=== PATIENT | female | born 1970 | race Caucasian/White ===

== ENCOUNTER 2024-07-29 20:03 | Inpatient (IN) | payer BC, SELFPAY ==
[2024-07-29] VITALS (7 sets, daily range): BP systolic 117–143; BP diastolic 69–86; BMI 15.5; BMI 33.2
--- NOTE | 2024-07-29 13:30 | ED.GENMED ---
ED Provider Triage
<Cindy Kilgore BLACK TOP RAKER - Last Filed: 07/29/24 13:39>
-
Patient seen by provider in Triage?: Seen in Triage
Attestation: A medical screening examination has been initiated by a qualified medical provider. Based on the assessment performed at this time, it has been determined that an emergent medical condition may exist and the patient has been informed
that further medical evaluation and possible additional diagnostic testing may be needed.
HPI: 53 yo female here for swelling in legs, pt states she was discharged two hours ago UTI, from [facility] for Crohn's flare, rectal bleeding with clots, thrush, renal failure
She has been in contact with her colorectal Dr. Chang who was going to have her transferred here but they discharged her before that happened.
VSS
GENERAL: Alert , in no apparent distress
EYE: No visual abnormalities.
NECK: Trachea midline
ENT: No visible abnormalities.
LUNGS: No acute respiratory distress
NEUROLOGICAL: Alert and oriented
SKIN: Skin intact. No visible changes.
MUSCULOSKELETAL: Moving extremities normally
PSYCH: Normal and appropriate interaction.
This is a medical evaluation conducted in person to initiate diagnostic evaluation and provide initial therapeutics. Please see further documentation by the treating clinician.
History of Present Illness
<Cindy Kilgore, BLACK TOP RAKER - Last Filed: 07/29/24 13:39>
General
Chief Complaint: Abdominal Pain
Time Seen by Provider: 07/29/24 16:15
<Jaylan Dickson PA-C - Last Filed: 07/29/24 17:32>
General
Source: patient
Exam Limitations: none
History of Present Illness
History of Present Illness:
53-year-old female with history of Crohn's disease recently released from [facility] for Crohn's flare, thrush, UTI. She is followed by colorectal specialist here, Dr. Chang. She was told to come here by her colorectal specialist. She
notes ongoing bloody bowel movements abdominal discomfort and leg swelling. She notes fatigue. She also notes difficulty swallowing secondary to her thrush. She has been using nystatin at the hospital. She was basically discharged from [facility] with instructions to come right here.
Past History
<Cindy Kilgore BLACK TOP RAKER - Last Filed: 07/29/24 13:39>
Past History
ED Past Medical History: Other (Crohns, RA on Stellara, Uterine fibroids, Anemia, )
ED Past Surgical History: Appendectomy, Bowel resection (with colostomy reversal. J pouch), Cholecystectomy, Orthopedic (Right wrist surgery), Tonsilectomy and Other (February 17 2020 Attempted reversal of Colostomy with further bowel resection and
Ileostomy, lysis of adhesions, J-pouch formation)
Social History
Tobacco: Smoker
Alcohol: None
Personal: (But seperated)
Living: with family
Employment: Other
Family History
Family History: Other
Phy Exam
<Jaylan Dickson PA-C - Last Filed: 07/29/24 17:32>
Physical Exam
Physical Exam:
General: Well-appearing female no acute respiratory distress
HEENT: Normocephalic atraumatic
Heart: Regular rate and rhythm no murmurs
Lungs: Clear no wheeze
Abdomen is soft mildly diffusely tender. Ecchymosis noted over the abdominal skin is consistent with subcutaneous heparin injections from recent hospitalization
Extremities: Mild pitting edema bilateral lower extremities
Skin warm no rash
Course
<Cindy Kilgore, BLACK TOP RAKER - Last Filed: 07/29/24 13:39>
Orders/Labs/Results
Orders:
Orders
07/29/24 13:37
Urinalysis Reflex To Culture Urgent
07/29/24 14:05
Type+Screen Urgent
CRP [C-Reactive Protein] Urgent
Complete Blood Count/With Diff Urgent
Comprehensive Metabolic Panel Urgent
Lipase Urgent
Manual Differential Urgent
07/29/24 16:38
0.9% Sodium Chloride 1000 ml [Nss] 1,000 ml IV BOLUS
Abnormal Lab Results
07/29/24
14:05
WBC 23.5 H 10^3/uL
(4.8-10.8)
RBC 3.59 L 10^6/uL
(4.20-5.40)
Hgb 10.2 L g/dL
(12.0-16.0)
Hct 31.2 L %
(37.0-47.0)
MCHC 32.7 L g/dL
(33.0-37.0)
RDW 15.4 H %
(11.5-14.5)
Abs Neuts (Manual) 14.3 H 10^3/uL
(1.4-6.5)
Chloride 109 H mmol/L
(98-107)
BUN 39 H mg/dl
(7-17)
Creatinine 1.6 H mg/dL
(0.6-1.0)
AST 55 H U/L
(14-36)
ALT 92 H U/L
(0-35)
Total Protein 5.6 L g/dl
(6.3-8.2)
Albumin 3.2 L g/dl
(3.5-5.0)
07/29/24 14:05
07/29/24 14:05
Vital Signs
Initial and Last Documented VS:
Initial Vital Signs
Temp Pulse Resp BP Pulse Ox
98.2 F 85 18 139/86 98
07/29/24 13:29 07/29/24 13:29 07/29/24 13:29 07/29/24 13:29 07/29/24 13:29
Last Documented Vital Signs
Temp Pulse Resp BP Pulse Ox
98.2 F 92 18 120/77 95
07/29/24 13:29 07/29/24 15:16 07/29/24 15:16 07/29/24 16:47 07/29/24 16:48
Aaronlt;Jaylan Dickson PA-C - Last Filed: 07/29/24 17:32>
Orders/Labs/Results
Orders:
Orders
07/29/24 13:37
Urinalysis Reflex To Culture Urgent
07/29/24 14:05
Type+Screen Urgent
CRP [C-Reactive Protein] Urgent
Complete Blood Count/With Diff Urgent
Comprehensive Metabolic Panel Urgent
Lipase Urgent
Manual Differential Urgent
07/29/24 16:38
0.9% Sodium Chloride 1000 ml [Nss] 1,000 ml IV BOLUS
Abnormal Lab Results
07/29/24
14:05
WBC 23.5 H 10^3/uL
(4.8-10.8)
RBC 3.59 L 10^6/uL
(4.20-5.40)
Hgb 10.2 L g/dL
(12.0-16.0)
Hct 31.2 L %
(37.0-47.0)
MCHC 32.7 L g/dL
(33.0-37.0)
RDW 15.4 H %
(11.5-14.5)
Abs Neuts (Manual) 14.3 H 10^3/uL
(1.4-6.5)
Chloride 109 H mmol/L
(98-107)
BUN 39 H mg/dl
(7-17)
Creatinine 1.6 H mg/dL
(0.6-1.0)
AST 55 H U/L
(14-36)
ALT 92 H U/L
(0-35)
Total Protein 5.6 L g/dl
(6.3-8.2)
Albumin 3.2 L g/dl
(3.5-5.0)
07/29/24 14:05
07/29/24 14:05
Vital Signs
Initial and Last Documented VS:
Initial Vital Signs
Temp Pulse Resp BP Pulse Ox
98.2 F 85 18 139/86 98
07/29/24 13:29 07/29/24 13:29 07/29/24 13:29 07/29/24 13:29 07/29/24 13:29
Last Documented Vital Signs
Temp Pulse Resp BP Pulse Ox
98.2 F 92 18 120/77 95
07/29/24 13:29 07/29/24 15:16 07/29/24 15:16 07/29/24 16:47 07/29/24 16:48
<Jaylan Dickson PA-C - Last Filed: 07/29/24 17:32>
MDM/Problems Addressed
Differential Diagnosis Includes:
Patient here for persistent abdominal pain and rectal bleeding. She notes dark red blood per rectum. This has been ongoing. She was in [facility] for the same reason. She has been in contact with the colorectal specialist and was advised
to come here. He also is currently being treated for thrush and UTI.
Will check labs. Fluids ordered
<Jaylan Dickson PA-C - Last Filed: 07/29/24 17:32>
*Critical Care Note
Total Time (30-74mins, 75-104mins- exclusive of procedures): Not Applicable
<Jaylan Dickson PA-C - Last Filed: 07/29/24 17:32>
Update Note
Update Note:
Discussed with Dr. Chang who saw the patient. Recommended admission to hospital for Crohn's flare. He believes the J-pouch may be failing. Will admit to medical service.
ED Attending Note
<Cindy Kilgore NP - Last Filed: 07/29/24 13:39>
-
Portions of this chart may have been created with voice recognition software.� Occasional wrong word or��sound alike� substitutions may have occurred due to the inherent limitations of voice recognition software.
Discharge Plan
Departure
Patient Disposition: Admit
Date of Disposition: 07/29/24
Time of Disposition: 17:32
Admit to: Telemetry
Presentation/result/management discussed w/ accepting MD/DO: Hospitalist
Discharge Problem:
Crohn disease
Prescriptions:
No Action
Stelara 90 mg/mL Syringe
90 mg SC Q8W
pantoprazole [Protonix] 40 mg tablet,delayed release (DR/EC)
40 mg PO DAILY Qty: 30 0RF
dicyclomine 20 mg tablet
20 mg PO TID Qty: 90 0RF
ondansetron 4 mg Tablet,Disintegrating
4 mg PO BIDPRN PRN (Reason: nausea/vomiting) Qty: 10 0RF
Referrals:
Allan Nj MD [Family Provider] -
Interventions
Interventions:
*Risk Screen - Suicide Last Done: 07/29/24 13:29
*General Assessment Last Done: 07/29/24 13:29
*Neglect/Abuse Screening Last Done: 07/29/24 13:29
ED- Fall Risk Assessment Last Done: 07/29/24 16:43
*ED COVID-19 Vaccine History Last Done: 07/29/24 16:43
EP-Jsmykj-Fhedpfvhrz Assessment Last Done: 07/29/24 16:45
Discharge Date and Time
Print Language: CITIZEN OF [place]
[2024-07-29 14:28] LABS: Hematocrit 31.2 % (37.0-47.0); Hemoglobin 10.2 g/dL (12.0-16.0); Mean Corp Hgb Conc. 32.7 g/dL (33.0-37.0); Mean Corpuscular Hgb 28.4 pg (27.0-31.0); Mean Corpuscular Volume 86.9 fL (81.0-99.0); Mean Platelet Volume 9.9 fL (7.4-10.4); Platelet Count 210 10^3/uL (130-400); Red Blood Cell Count 3.59 10^6/uL (4.20-5.40); Red Cell Dist. Width 15.4 % (11.5-14.5); White Blood Cell Count 23.5 10^3/uL (4.8-10.8)
[2024-07-29 14:33] LABS: ALT (SGPT) 92 U/L (0-35); AST (SGOT) 55 U/L (14-36); Albumin 3.2 g/dl (3.5-5.0); Alkaline Phosphatase 104 U/L (38-126); Blood Urea Nitrogen 39 mg/dl (7-17); Calcium 8.4 mg/dl (8.4-10.2); Carbon Dioxide 26 mmol/L (22-30); Chloride 109 mmol/L (98-107); Glucose 99 mg/dl (70-99); Lipase 137 U/L (23-300); Potassium 3.8 mmol/L (3.5-5.1); Sodium 140 mmol/L (135-145); Total Bilirubin 0.2 mg/dl (0.2-1.3); Total Protein 5.6 g/dl (6.3-8.2); eGFR 38.56
[2024-07-29 15:21] LABS: Absolute Neutrophils -Man Diff 14.3 10^3/uL (1.4-6.5); Band Neutrophils 0 % (0-3); Lymphocytes 22 % (20-51); Segmented Neutrophils 61 % (42-75)
[2024-07-29 15:22] LABS: Metamyelocytes 7 % (-); Monocytes 5 % (2-9); Myelocytes 5 % (-); Platelets Checked Yes
[2024-07-29 15:23] LABS: Anisocytosis Slight; Normal RBC Morphology No; Polychromasia Slight
[2024-07-29 15:24] LABS: Macrocytosis Slight; Total Cells Counted 100
[2024-07-29 16:01] LABS: C-Reactive Protein < 5.00 mg/L (0.0-10.00)
[2024-07-29] MEDS: NSS 1000 IV (16:50)
[2024-07-29 18:20] LABS: Urine Albumin Negative (Neg - Trace); Urine Bilirubin Negative (Negative); Urine Character Clear (Clear); Urine Color Yellow; Urine Glucose Negative (Negative); Urine Ketone Negative (Negative); Urine Leukocyte Trace (Negative); Urine Nitrite Negative (Negative); Urine Occult Blood Negative (Negative); Urine Urobilinogen Negative (Neg - 1+)
[2024-07-29] MEDS: ZOFRAN 4 MG IV (18:20)
[2024-07-29] MEDS: DILAUDID 0.5 MG IV ×2 (18:20→22:46)
[2024-07-29 18:39] LABS: Urine Bacteria Few (Negative); Urine Red Blood Cell 0-2 /HPF (0-2); Urine White Cell 0-2 /HPF (0-5)
--- NOTE | 2024-07-29 18:52 | HPS.HSE ---
Family Physician
-
Family Physician: Allan Nj
Chief Complaint
-
Abdominal pain
History of Present Illness
The geyold-ryqo-cla female was a past medical history of Crohn's colitis with multiple complications including perforation, bowel obstruction and bowel surgeries status post ileostomy and colostomy complicated by severe dehydration and subsequent
CKD now status post revision who presents after discharge from outside hospital with ongoing abdominal pain requiring further evaluation.
Patient reported that about 2 weeks ago she had colonoscopy as an outpatient which showed inflammation and strictures in the pouch. This was done for ongoing abdominal discomfort and bleeding. She was sent to the hospital at [facility]. Then she
was found to be in [place] on CKD and was started on antibiotics and high-dose steroids. She continued to have abdominal pain and rectal bleeding. She also developed severe oral candidiasis with significant dysphagia. Patient was supposed to be
transferred to for a procedure but she was discharged prior to the transfer. Hospital because there was further complicated by UTI for which she completed a course of antibiotics.
In the ED here today the patient was afebrile, blood pressure was 122/81 with a pulse of 92. Repeated labs showed a white count of 23.5 with 7% immature cells which is similar to prior with increased, hemoglobin and platelets were unchanged from
prior. Chemistries were notable for normal sodium and potassium chloride and bicarb. BUN and creatinine were similar to prior at 39 and 1.6. She has been referred here for GI evaluation and colonoscopy.
Medical History
Past Medical History
Past Medical History: Reports Other (Crohn's )
Past Surgical History: Reports Bowel Resection
Social History
Tobacco: Non-smoker
Alcohol: None
Drug: None
Personal:
Living: With Family
Family History
Family History: Not pertinent
Allergies / Home Medications
Allergies reflects when Allergies were last updated in [employer].
Home Medications with original date entered in [employer]
Allergy/Medication List:
Allergies
Allergy/AdvReac Type Severity Reaction Status Date / Time
linezolid Allergy PATIENT Verified 07/29/24 13:28
DENIES
morphine Allergy Chest Verified 07/29/24 13:28
Heaviness,
SOB,
flushing
vancomycin Allergy Red Man Verified 07/29/24 13:28
Syndrome,
tolerates
1g over 2
hours
Home Medications
ustekinumab 90 mg/mL subcutaneous syringe (Stelara) 90 mg SC Q8W Autoimmune Disorder 02/05/23
Review of Systems
-
Constitutional: Reports Weight Gain
EENT: Reports Sore Throat and Mouth Pain
Respiratory: Reports No Symptoms
Cardiac: Reports No Symptoms
Abdomen/GI: Reports Abdominal Pain and Bloody Stools
: Reports No Symptoms
Musculoskeletal: Reports No Symptoms
Skin: Reports No Symptoms
Neurological: Reports No Symptoms
Endocrine: Reports No Symptoms
Hematologic/Lymphatic: Reports No Symptoms
Psych: Reports No Symptoms
Physical Exam
Vital Signs
Vital Signs
Temp Pulse Resp BP Pulse Ox
98.2 F 92 18 122/81 97
07/29/24 13:29 07/29/24 15:16 07/29/24 15:16 07/29/24 17:00 07/29/24 18:05
Physical Exam
General: Well Developed and Conversant
HEENT: NormoCephalic, Anicteric, Moist mucous membranes, Atraumatic, Thrush and PERRLA
Respiratory: Clear
Cardiac: S1/S2 and Regular Rhythm
Breast: Deferred by me
GI: Soft, Non Distended, Normal Bowel Sounds and Tender
Rectal: Brown
Genito-urinary: Deferred by me
Musculoskeletal: No Clubbing, No Cyanosis and No Edema
Skin: Warm
Neuro: AO x 3
Hematologic/Lymphatic: No Lymphadenopathy
Psych: Calm
Laboratory Results
-
07/29/24 14:05
07/29/24 14:05
Laboratory Results
Total Bilirubin 0.2 mg/dl (0.2-1.3) 07/29/24 14:05
AST 55 U/L (14-36) H 07/29/24 14:05
ALT 92 U/L (0-35) H 07/29/24 14:05
Alkaline Phosphatase 104 U/L (38-126) 07/29/24 14:05
Lipase 137 U/L (23-300) 07/29/24 14:05
Data Reviewed
-
Lab Data: Labs Reviewed by me
Old Records: Reviewed
Impression/Plan
-
IMPRESSION:
53 y.o female with h/o crohn's disease here with ongoing exacerbation with abdominal pain, rectal bleeding. Was evaluated at [facility] outside hospital where she was treated empirically, however was unable to get a colonoscopy and Dr. Chang
wanted transfer to for GI eval and colonoscopy but patient discharged on antibiotics prior to the transfer. She transported herself here immediately after.
PLAN:
1. Crohns Exacerbation - failure of stelara
- admit to med/surg
- clear liquid diet for now
- continue with iv levaquin and metronidazole
- IV fluids, pain control and antimetics
- GI consultation
2. Oral candidiasis - secondary to steroids
- diflucan
- magic mouthwash prn
3. UTI - denies current symptoms
- obtain u/a
- continuing levaquin
- obtain records from [facility]
4. Renal Function - Stable at around baseline
- gentle hydration for now, avoid nephrotoxins
DVT PPX - heparin sq
Code status - Full Code
--- NOTE | 2024-07-29 19:01 | CON.CRS ---
Consultation
-
Date/Time Consultation Requested: 07/29/2024 @ 17:00
Date/Time Consultation Performed: 07/29/2024 @17:30
Requesting Provider: Jaylan Dickson PA-C
Performing Provider: Jaylan Chang MD
Reason for Consultation: Crohn's flare
Medical History
-
Chief Complaint: Abdominal pain and diarrhea
History of Present Illness:
53-year-old female with a chronic history of Crohn's disease known to me after undergoing multiple surgeries, including an ileoanal pouch in 2020, who presents with a probable Crohn's flare.� She states she was functioning pretty well until a couple
months ago.� Over the past few months she has had approximately 15-20 small bowel movements a day.� The stools are loose and sometimes there is blood.� She has lower abdominal pressure and cramps with intermittent vomiting.� She also admits to
fevers and chills.
She saw Dr. Hays, her conformal pad former, who did a pouchoscopy approximately 2 weeks ago and it reportedly revealed ulcerations and a possible stenosis.� He was contemplating switching her Stelara to Rinvoq but she ended up at [facility] for the last 9 days. �While there she underwent a CT scan and labs but no results are available.� She was started on steroids and says she developed oral thrush. She also states she had renal dysfunction and a UTI.� She was
discharged today and presents to our emergency room.
Past Medical History
Past Medical History: Other (Crohn's disease)
Past Surgical History: Bowel Resection (multiple bowel surgeries including a total colectomy, ileostomies), Cholecystectomy, Orthopedic (right wrist sujrgery) and Tonsilectomy
Social History
Tobacco: Former Smoker
Alcohol: None
Drug: None
Personal: Single
Allergies / Home Medications
Allergy/AdvReac Type Severity Reaction Status Date / Time
linezolid Allergy PATIENT Verified 07/29/24 13:28
DENIES
morphine Allergy Chest Verified 07/29/24 13:28
Heaviness,
SOB,
flushing
vancomycin Allergy Red Man Verified 07/29/24 13:28
Syndrome,
tolerates
1g over 2
hours
�Medication �Instructions �Recorded �Confirmed �Type
ustekinumab 90 mg/mL subcutaneous 90 mg SC Q8W Autoimmune Disorder 02/05/23 07/29/24 History
syringe (Stelara)
Review of Systems
-
History Source: Patient
All other systems: Negative unless noted
A 10 point review of systems was completed, and was negative except as per HPI.
Physical Exam
Vital Signs
Temp 98.2 F 07/29/24 13:29
Pulse 92 07/29/24 15:16
Resp Rate 18 07/29/24 15:16
Blood pressure 122/81 07/29/24 17:00
SaO2 97 07/29/24 18:05
07/28/24 07/29/24 07/30/24
06:59 06:59 06:59
Actual Weight 47.582 kg
Body Mass Index (BMI) 15.5
Lab Results / Allergies
07/29/24 14:05
07/29/24 14:05
WBC 23.5 10^3/uL (4.8-10.8) H 07/29/24 14:05
Hgb 10.2 g/dL (12.0-16.0) L 07/29/24 14:05
Hct 31.2 % (37.0-47.0) L 07/29/24 14:05
Plt Count 210 10^3/uL (130-400) 07/29/24 14:05
Allergy/AdvReac Type Severity Reaction Status Date / Time
linezolid Allergy PATIENT Verified 07/29/24 13:28
DENIES
morphine Allergy Chest Verified 07/29/24 13:28
Heaviness,
SOB,
flushing
vancomycin Allergy Red Man Verified 07/29/24 13:28
Syndrome,
tolerates
1g over 2
hours
Physical Exam
General: Well Developed, Well Nourished and No Apparent Distress
HEENT: Anicteric
Respiratory: Clear
Cardiac: Regular Rhythm
GI: Soft, Non Tender and Non Distended
Rectal: Other (STEPHANIE during a pouchoscopy)
Skin: Warm
Neuro: Awake and Alert
Psych: Calm
Data Reviewed
-
Labs: Labs Reviewed by me and Discussed with Patient
Assessment / Plan
-
Probable Crohn's flare in a patient with a J-pouch.
Discussed with GI and the plan is for medical management and a possible pouchoscopy, preferably performed together. I explained that the only surgery available is for a pouch excision and permanent ileostomy. There is no indication for surgery at
this time. Will follow.
[2024-07-29] MEDS: LR 1000 IV (21:23)
[2024-07-29] MEDS: LEVAQUIN 100 IV (21:25)
[2024-07-29] MEDS: HEPARIN 5000 UNITS SC (21:25)
[2024-07-29] MEDS: MAGIC OR MIRACLE MOUTHWASH 5 ML PO (21:33)
[2024-07-29] MEDS: FLAGYL 500 MG 100 IV (22:46)
[2024-07-29] MEDS: ANESTHETIC LOZENGE 1 LOZENGE PO (23:01)
[2024-07-30] MEDS: MAGIC OR MIRACLE MOUTHWASH 5 ML PO ×6 (02:39→22:43)
--- NOTE | 2024-07-30 02:41 | PTCARENOTE ---
at 2034, pt admitted to rm 325 and walked from stretcher to bed w/ steady gait. VSS and pt c/o pain in abdomen 04/02. FLIGHT NURSE notified, Dilaudid 0.5mg ordered and given (see MAR). call watts within reach and plan of care ongoing.
[2024-07-30] MEDS: DILAUDID 0.5 MG IV ×5 (02:47→23:04)
[2024-07-30] MEDS: FLAGYL 500 MG 100 IV ×3 (05:48→22:42)
[2024-07-30 07:00] VITALS: BP 122/66
[2024-07-30 07:14] LABS: Blood Urea Nitrogen 29 mg/dl (7-17); Calcium 7.7 mg/dl (8.4-10.2); Carbon Dioxide 29 mmol/L (22-30); Chloride 110 mmol/L (98-107); Estimated Creatinine Clearance 60 ml/min; Glucose 85 mg/dl (70-99); Potassium 3.8 mmol/L (3.5-5.1); Sodium 140 mmol/L (135-145); eGFR 45.27
[2024-07-30] MEDS: HEPARIN 5000 UNITS SC ×2 (07:24→20:52)
[2024-07-30] MEDS: DIFLUCAN 200 MG PO (07:24)
[2024-07-30 07:32] LABS: Hematocrit 27.9 % (37.0-47.0); Hemoglobin 8.8 g/dL (12.0-16.0); Mean Corp Hgb Conc. 31.5 g/dL (33.0-37.0); Mean Corpuscular Hgb 27.2 pg (27.0-31.0); Mean Corpuscular Volume 86.4 fL (81.0-99.0); Mean Platelet Volume 10.4 fL (7.4-10.4); Platelet Count 172 10^3/uL (130-400); Red Blood Cell Count 3.23 10^6/uL (4.20-5.40); Red Cell Dist. Width 15.6 % (11.5-14.5); White Blood Cell Count 15.9 10^3/uL (4.8-10.8)
[2024-07-30] MEDS: ANESTHETIC LOZENGE 1 LOZENGE PO ×2 (08:45→22:50)
--- NOTE | 2024-07-30 09:05 | CON.GI ---
Addendum entered and electronically signed by Caity Medellin MD 07/30/24 15:04:
I saw and examined the patient.
The LUBE WORKER's note was reviewed and I agree with the note.
Comment: This is a 53-year-old female with prior history of alcohol pancreatitis in 2022, fatty liver, Crohn's ileocolitis sees Dr. Hays in [place] and had proctocolectomy with ileoanal J-pouch anastomosis in 2020 and also has had multiple
other surgeries as listed below and currently on Stelara every 8 weeks and in the past had been on Remicade. She had a recent pouchoscopy about [address] Hays which apparently showed ulcerations in the pouch and possible stenosis and
she was being considered to switch her from Stelara to Rinvoq she then was admitted to [facility] and was there for a few days and received IV steroids for about 1 to 2 days. She has been having diarrhea with some blood in the stool and
lower abdominal pain and presented back to the emergency room at [facility] yesterday and was also seen by Dr. Chang who did her prior surgery.
Assessment and plan symptoms of diarrhea with rectal bleeding most likely related to flare with chronic pouchitis and she also has looks like anal stenosis from known Crohn's disease. She follows up with Dr. Hays and has an appointment next
week. Will start her on Solu-Medrol she is on Stelara every 8 weeks as outpatient and also continue antibiotics currently on Levaquin and Flagyl. If her symptoms improve could transition to oral prednisone tomorrow with taper and follow-up with
Dr. Hays apparently the plan was to switch her to Rinvoq if she continues to have persistent symptoms.
Original Note:
Consultation
-
Date/Time Consultation Requested: 07/30/2422
Date/Time Consultation Performed: 07/30/24904
Requesting Provider: Dr. Garcia
Performing Provider: Dr. Medellin/DONTRELL Dale
Reason for Consultation: crohns exacerbation
Medical History
Chief Complaint / HPI
History of Present Illness:
53 y/o female with hx of ETOH pancreatitis (02/2023), fatty liver, Crohns disease currently followed by currently GI by Dr. Huang Huitron in [place] and Surgically by Dr. Chang with prior hx of small bowel/large bowel diagnosed 24 years ago, was on
Remicade for several years and was switched to Stelara 6 years ago.� In 2017 she apparently had perforation of the distal descending/sigmoid colon and had to have a laparotomy. Since then in 2019 she had had robotic colostomy takedown with loop
ileostomy complicated by abdominal abscesses/pelvic anastomotic leak, Resection of previous ileocolic anastomosis and L colon (02/2020)�revision of ileostomy (03/2020) ex laparotomy [facility], completion proctectomy with ileoanal J-pouch anastomosis and
diverting loop ileostomy, repair of parastomal hernia (03/2021),Resection and closure of ileostomy with ileoanal pouch (06/2021), has hx of secondary openings of fistulas in 02/2023 on Stelara. Currently being followed by Dr. Hays who did a
pouchoscopy 2 weeks ago that showed ulcerations and possible stenosis. She is considering switching her from Stelara to Rinvoq however she ended up at [facility]. She was started on IV steroids. As she was having 8-12 bowel
movements a day. These are watery with blood in it. She was also having left lower quadrant cramping as well as lower abdominal discomfort. She was there for 9 days. The patient states she developed oral thrush, she states she was treated for
this. No thrush seen currently on her tongue or mouth. She states she also developed a UTI and finished antibiotics. She was subsequently discharged to home. She presented here to the emergency department as she continued with 8-12 bowel
movements daily.
Past Medical History
Past Medical History: Other (Crohns disease small and large bowel)
Past Surgical History: Appendectomy, Bowel Resection (Resection and closure of ileostomy (06/2021) ex laparotomy [facility], completion proctectomy with ileoanal J-pouch anastomosis and diverting loop ileostomy, repair of parastomal hernia (03/2021), laura
of ilieostomy (03/2020)Resection of previous ileocolic anastomosis and L colon (02/2020)), Cholecystectomy and Other ( Excision of hemorrhoidal tag and perianal Crohn's disease.(02/25/23))
Social History
Tobacco: Former Smoker
Alcohol: Former (recent daily drinking)
Drug: Former User and Marijuana
Personal: Other ()
Living: With Family
Family History
Family History: Other (Brother , stomach cancer, esophageal cancer, maternal first cousin Crohn's disease/stomach cancer, multiple family members with inflammatory bowel disease)
Allergies / Home Medications
Allergy/AdvReac Type Severity Reaction Status Date / Time
linezolid Allergy PATIENT Verified 07/29/24 13:28
DENIES
morphine Allergy Chest Verified 07/29/24 13:28
Heaviness,
SOB,
flushing
vancomycin Allergy Red Man Verified 07/29/24 13:28
Syndrome,
tolerates
1g over 2
hours
�Medication �Instructions �Recorded
ustekinumab 90 mg/mL subcutaneous 90 mg SC Q8W Autoimmune Disorder 02/05/23
syringe (Stelara)
Review of Systems
-
All other systems: A 12 pt ROS was Negative except as stated above in HPI
Vital Signs
Temp Pulse Resp BP Pulse Ox
98 F 67 16 122/66 96
07/30/24 07:00 07/30/24 07:00 07/30/24 07:00 07/30/24 07:00 07/30/24 07:00
Physical Exam
Exam
General: No Apparent Distress
HEENT: Anicteric
Respiratory: Clear
Cardiac: Regular Rhythm
GI: Soft, Non Distended, Normal Bowel Sounds, Tender (Left lower quadrant, lower abdomen) and Other (Ecchymosis lower abdomen secondary to DVT prophylaxis injection)
Musculoskeletal: Edema (Trace lower extremity edema)
Skin: Warm and Dry
Neuro: AO x 3
Psych: Calm
Results
WBC 15.9 10^3/uL (4.8-10.8) H 07/30/24 06:09
Hgb 8.8 g/dL (12.0-16.0) L 07/30/24 06:09
Hct 27.9 % (37.0-47.0) L 07/30/24 06:09
MCV 86.4 fL (81.0-99.0) 07/30/24 06:09
Plt Count 172 10^3/uL (130-400) 07/30/24 06:09
Sodium 140 mmol/L (135-145) 07/30/24 06:09
Potassium 3.8 mmol/L (3.5-5.1) 07/30/24 06:09
Chloride 110 mmol/L (98-107) H 07/30/24 06:09
Carbon Dioxide 29 mmol/L (22-30) 07/30/24 06:09
BUN 29 mg/dl (7-17) H 07/30/24 06:09
Creatinine 1.4 mg/dL (0.6-1.0) H 07/30/24 06:09
Calcium 7.7 mg/dl (8.4-10.2) L 07/30/24 06:09
Total Bilirubin 0.2 mg/dl (0.2-1.3) 07/29/24 14:05
AST 55 U/L (14-36) H 07/29/24 14:05
ALT 92 U/L (0-35) H 07/29/24 14:05
Alkaline Phosphatase 104 U/L (38-126) 07/29/24 14:05
Lipase 137 U/L (23-300) 07/29/24 14:05
Diagnostic Image Results:
CT Abd/Pelvis with oral and IV contrast:
The patient is status post proctocolectomy, with J-pouch formation. Distal narrowing, most consistent with the patient's known stricture.
No bowel obstruction. No free fluid or free air.
Prior GI Procedures:
EGD: 03/19/2023 (Dr. Medellin) - Non-obstructing Schatzki ring.
- Small hiatal hernia.
- Erythematous mucosa in the antrum. Biopsied.
- ? mild Portal hypertensive gastropathy.
- Normal examined duodenum.
EGD: 03/09/2020 (Dr. Abebe) �- Normal examined duodenum.
�� � � � � � � � � � - No gross lesions in the stomach.
�� � � � � � � � � � - Small hiatal hernia.
�� � � � � � � � � � - Mild Schatzki ring.
�� � � � � � � � � � - LA Grade D esophagitis. Biopsied.
�� � � � � � � � � � - Esophageal plaques were found, doubt candidiasis.
�� � � � � � � � � � Brushings performed.
Colonoscopy: 01/06/23 (Dr. Chang) - The anastomosis and pouch are normal.
�� � � � � � � � � � � - No specimens collected.
Sigmoidoscopy 09/17/21 (Dr. Chang): - The rectal pouch is normal.
�� � � � � � � � � � � - No specimens collected.
Colonoscopy 05/23/21 (De. Chang) �- Perianal skin tags found on perianal exam.
�� � � � � � � � � � � - No specimens collected.
Colonoscopy 01/29/2021 (Dr. Chang) - Crohn's disease with rectal involvement.
�� � � � � � � � � � � Inflammation was found. This was mild in severity. 8cm
�� � � � � � � � � � � rectal stump.
�� � � � � � � � � � � - Perianal skin tags found on perianal exam.
�� � � � � � � � � � � - No specimens collected.
Assessment / Plan
-
53 y/o female with hx of ETOH pancreatitis (02/2023), fatty liver, Crohns disease currently followed by currently GI by Dr. Huang Huitron in [place] and Surgically by Dr. Chang with prior hx of small bowel/large bowel diagnosed 24 years ago, was on
Remicade for several years and was switched to Stelara 6 years ago.� In 2017 she apparently had perforation of the distal descending/sigmoid colon and had to have a laparotomy. Since then in 2019 she had had robotic colostomy takedown with loop
ileostomy complicated by abdominal abscesses/pelvic anastomotic leak, Resection of previous ileocolic anastomosis and L colon (02/2020)�revision of ileostomy (03/2020) ex laparotomy [facility], completion proctectomy with ileoanal J-pouch anastomosis and
diverting loop ileostomy, repair of parastomal hernia (03/2021),Resection and closure of ileostomy with ileoanal pouch (06/2021), has hx of secondary openings of fistulas in 02/2023 on Stelara. Currently being followed by Dr. Hays who did a
pouchoscopy 2 weeks ago that showed ulcerations and possible stenosis. She is considering switching her from Stelara to Rinvoq however she ended up at [facility]. She was treated for UTI with antibiotics, also treated with IV
steroids for Crohn's flare, developed oral thrush treated as well. Discharged home. Returns to the ER here for continued diarrhea 8-12 episodes a day. There was blood within it now improving. Asked to evaluate for the same. Currently awaiting
records from her hospitalization. The patient is unsure if she had stool studies performed. She is still having left lower quadrant and lower abdominal tenderness. She presented with a leukocytosis of 23.5 now down to 15.9, hemoglobin 8.8 down
from 10.2, hematocrit 27.9, platelets 172, sodium 140, potassium 3.8, BUN 29, creatinine 1.4, glucose 85, total bilirubin 0.2, AST 55, ALT 92, alk phos 104, albumin 3.2
Impression:
-Crohn's with ileoanal J pouch, status post pouchoscopy approximately 2 weeks ago with ulcerations and stenosis-> currently on Stelara-> follows with Dr. Hays in [place]
--Continues to be symptomatic with 8-12 bowel movements daily. Watery. Improvement less blood seen within bowel movements since hospitalized yesterday
-Recent hospitalization at [facility] status post IV steroids-> awaiting records
-Recent UTI status post antibiotics
-Oral thrush status posttreatment, no signs present
-Anemia
Plan:
-Continue Levaquin and Flagyl as ordered
-Will start on Solu-Medrol 20 mg IV every 8
-Continue DVT prophylaxis
-Trend labs
-Recommend compression stockings, patient declined
-Records from [facility]
-
-
Thank you for consultation and allowing me to participate in the patient's care. Please call the rehabilitation assistant GI physician during the after hours with any questions or concerns.
[2024-07-30] MEDS: SOLU-MEDROL PF 20 MG IV ×2 (10:48→17:04)
[2024-07-30] MEDS: LR 1000 IV (14:09)
[2024-07-30 15:00] VITALS: BP 149/67
--- NOTE | 2024-07-30 15:09 | W.PN.HOSP.TC ---
Today's Communication/Plan
-
cont meds, steroids
possible d/c in AM if better
Assessment / Plan
Assessment / Plan
pt is a 53 year old female
Crohn's Exacerbation - failure of Stelara--apprec GI--IV steroids started--on ABX with levaquin and metronidazole--cont IVF
Oral candidiasis - secondary to steroids- stop diflucan- magic mouthwash prn, mycelex laine
UTI? - denies current symptoms--UA unremarkable- obtain records from [facility]
CKD stage 3--creat Stable at baseline- gentle hydration for now, avoid nephrotoxins
DVT PPX - heparin sq
Code status - Full Code
Anticipated Discharge: Within 24 hours
Subjective/Interval History
-
Date of Service: July 30, 2024
pt still with diarrhea
Objective Data
-
Labs:
Laboratory Results
07/30/24
06:09
WBC 15.9 H
Hgb 8.8 L
Hct 27.9 L
Plt Count 172
Sodium 140
Potassium 3.8
Chloride 110 H
Carbon Dioxide 29
BUN 29 H
Creatinine 1.4 H
Glucose 85
Calcium 7.7 L
Vital Signs:
max temp for 24 hours
07/29/24
13:29
Temp 98.2 F
Vital Signs
Temp Pulse Resp BP Pulse Ox
98 F 67 16 122/66 96
07/30/24 07:00 07/30/24 07:00 07/30/24 07:00 07/30/24 07:00 07/30/24 07:00
I&O
07/29/24 07/30/24 07/31/24
06:59 06:59 06:59
Intake Total 960 / 960
Balance 960 / 960
Review of Systems
-
All other systems: Reviewed and negative
Abdomen/GI: Reports Abdominal Pain and Diarrhea
Physical Exam
-
General: Well Developed, Well Nourished and No Apparent Distress
HEENT: Normocephalic, Atraumatic and Other (dry mucus membranes--no thrush seen)
Respiratory: Clear to Auscultation; Negative Wheezes or Rhonchi
Cardiac: Regular Rhythm and S1/S2; Negative Murmur
GI: Soft, Nondistended, Normal Bowel Sounds, Tender (no guarding or rebound) and Other (bruising from heparin shots)
Musculoskeletal: No Clubbing, No Cyanosis and No Edema
Skin: Warm
Neuro: Awake and Alert
Psych: Calm
[2024-07-30] MEDS: MYCELEX TROCHE 10 MG PO ×2 (17:04→22:43)
[2024-07-30] MEDS: ZOFRAN 4 MG IV (18:51)
[2024-07-30] MEDS: LEVAQUIN 50 IV (20:52)
[2024-07-30 23:00] VITALS: BP 140/79
[2024-07-31] MEDS: SOLU-MEDROL PF 20 MG IV ×3 (03:03→18:39)
[2024-07-31] MEDS: MAGIC OR MIRACLE MOUTHWASH 5 ML PO ×6 (03:05→20:47)
[2024-07-31] MEDS: DILAUDID 0.5 MG IV ×4 (03:05→20:56)
[2024-07-31] MEDS: ZOFRAN 4 MG IV ×3 (03:10→16:05)
[2024-07-31] MEDS: FLAGYL 500 MG 100 IV ×3 (05:29→20:47)
[2024-07-31 06:52] LABS: Hematocrit 32.5 % (37.0-47.0); Hemoglobin 10.5 g/dL (12.0-16.0); Mean Corp Hgb Conc. 32.3 g/dL (33.0-37.0); Mean Corpuscular Hgb 28.4 pg (27.0-31.0); Mean Corpuscular Volume 87.8 fL (81.0-99.0); Mean Platelet Volume 10.2 fL (7.4-10.4); Platelet Count 182 10^3/uL (130-400); Red Cell Dist. Width 15.5 % (11.5-14.5)
[2024-07-31] MEDS: LR 1000 IV (07:25)
[2024-07-31 07:32] LABS: ALT (SGPT) 56 U/L (0-35); AST (SGOT) 21 U/L (14-36); Albumin 3.3 g/dl (3.5-5.0); Alkaline Phosphatase 93 U/L (38-126); Blood Urea Nitrogen 25 mg/dl (7-17); Calcium 8.4 mg/dl (8.4-10.2); Carbon Dioxide 30 mmol/L (22-30); Chloride 103 mmol/L (98-107); Estimated Creatinine Clearance 60 ml/min; Glucose 138 mg/dl (70-99); Potassium 4.4 mmol/L (3.5-5.1); Sodium 140 mmol/L (135-145); Total Bilirubin 0.4 mg/dl (0.2-1.3); Total Protein 5.7 g/dl (6.3-8.2); eGFR 45.27
[2024-07-31 08:56] VITALS: BP 138/85
--- NOTE | 2024-07-31 09:06 | CM ---
Addendum entered by Marva Fofana 07/31/24 15:51:
Discharge cancelled
Addendum entered by Marva Fofana 07/31/24 14:25:
Discharge to home today; no needs; has transport home
Original Note:
Initial assessment completed at bedside
Pharmacy verified: [facility] @ [address] [facility], [place]
Patient lives in multilevel home with and 40 yr old niece; 2 steps to enter; 12-13 steps between floors; railings on stairs; powder room 1st floor; 2nd floor bath has tub w/shower
PLOF: independent with ambulation, stairs, and ADLs; drives; not working
No SNF utilization history; home health services 2017
No DME
Niece will transport home
Plan: discharge to home when medically stable; no needs anticipated
[2024-07-31 09:21] LABS: % Basophils 0.4 % (0-2); % Immature Granulocytes 6.5 % (0-0.5); % Lymphocytes 3.6 % (20.5-51.1); % Monocytes 4.9 % (1.7-9.3); % Neutrophils 84.6 % (42.2-75.2); Absolute Basophils 0.1 10^3/uL (0-0.2); Absolute Immature Granulocytes 1.6 10^3/uL (0-0.05); Absolute Lymphocytes 0.9 10^3/uL (1.2-3.4); Absolute Monocytes 1.2 10^3/uL (0.1-0.6); Absolute Neutrophils 20.3 10^3/uL (1.4-6.5); Nucleated Red Blood Cells % 0.1 %
[2024-07-31] MEDS: MYCELEX TROCHE PO (11:07)
[2024-07-31] MEDS: MYCELEX TROCHE 10 MG PO ×4 (11:07→23:13)
[2024-07-31] MEDS: HEPARIN SC (11:29)
--- NOTE | 2024-07-31 13:56 | W.PN.HOSP.TC ---
Today's Communication/Plan
-
d/c
Assessment / Plan
Assessment / Plan
pt is a 53 year old female
Crohn's Exacerbation - failure of Stelara--apprec GI--IV steroids started, changing to oral--on ABX with levaquin and metronidazole--stop IVF
Oral candidiasis - secondary to steroids- stop diflucan- magic mouthwash prn, mycelex laine
UTI? - denies current symptoms--UA unremarkable- obtain records from [facility]
CKD stage 3--creat Stable at baseline- gentle hydration for now, avoid nephrotoxins
DVT PPX - heparin sq
Code status - Full Code
Anticipated Discharge: Today
Subjective/Interval History
-
Date of Service: July 31, 2024
pt wants to go home
Objective Data
-
Labs:
Laboratory Results
07/31/24
06:03
WBC 24.0 H
Hgb 10.5 L
Hct 32.5 L
Plt Count 182
Sodium 140
Potassium 4.4
Chloride 103
Carbon Dioxide 30
BUN 25 H
Creatinine 1.4 H
Glucose 138 H
Calcium 8.4
Total Bilirubin 0.4
AST 21
ALT 56 H
Alkaline Phosphatase 93
Vital Signs:
max temp for 24 hours
07/30/24
15:00
Temp 98.2 F
Vital Signs
Temp Pulse Resp BP Pulse Ox
98.3 F 89 18 138/85 96
07/31/24 08:56 07/31/24 08:56 07/31/24 08:56 07/31/24 08:56 07/31/24 08:56
I&O
07/30/24 07/31/24 08/01/24
06:59 06:59 06:59
Intake Total 960 / 960 1230 / 1230
Balance 960 / 960 1230 / 1230
Review of Systems
-
All other systems: Reviewed and negative
Physical Exam
-
General: Well Developed, Well Nourished and No Apparent Distress
HEENT: Normocephalic and Atraumatic
Respiratory: Clear to Auscultation; Negative Wheezes or Rhonchi
Cardiac: Regular Rhythm and S1/S2; Negative Murmur
GI: Soft, Nontender, Nondistended and Normal Bowel Sounds
Musculoskeletal: No Clubbing, No Cyanosis and No Edema
Neuro: Awake and Alert
Psych: Calm
--- NOTE | 2024-07-31 14:29 | W.DCSUMMARY ---
Discharge Summary
Discharge Data
Date of Admission: 07/29/24
Date of Discharge: 07/31/24
Total time spent discharging patient (in min): 32
-
Pending Results: No
Hospital Course
Primary care physician : Allan Nj
Principal Discharge diagnosis : Exacerbation of Crohn's disease, oral candidiasis, possible urinary tract infection
Chronic Discharge diagnosis : chronic kidney disease stage III
Hospital Course : Patient was a 53-year-old female with a past medical history of Crohn's colitis with multiple complications from that including perforation, bowel obstruction, bowel surgeries who presented with ongoing abdominal pain requiring
further evaluation. She was discharged from an outside hospital and presents here. 2 weeks prior to admission she had a colonoscopy as an outpatient which showed inflammation and strictures in a pouch. This was done for ongoing abdominal
discomfort and bleeding and she was sent to [facility]. There she was found to be in acute kidney injury on chronic kidney disease stage III and started on antibiotics and high-dose steroids. She continued to have abdominal pain and
bleeding. She also developed severe oral candidiasis with dysphagia. Patient was to be transferred here for procedure but then was discharged prior to the transfer. She presented to the emergency department with white count of 23.5. Elevated BUN
and creatinine 39 and 1.6 which were similar to her prior. She has been referred here for GI evaluation and colonoscopy.
Problem #1: Exacerbation of Crohn's disease. Patient was seen in consultation by both GI and colorectal surgery. No interventions were planned here. Patient was started on levofloxacin and Flagyl along with steroids. Patient is feeling much
improved. She will need to taper her steroids in the following manner: 40 mg daily for 5 days decreasing by 5 mg every 5 days until it is off. This is recommended by GI. Patient tolerated her diet and is stable for discharge home at this time
along with antibiotics as mentioned.
Problem #2: Oral candidiasis. Patient was initially started on Diflucan however this was switched to oral Mycelex laine given drug interactions with Diflucan.
Problem #3: Possible urinary tract infection. Urinalysis shows trace leukocyte esterase and few bacteria. This is not consistent with a urinary tract infection. Nevertheless, she will be discharged on levofloxacin regardless.
Problem #4: Chronic kidney disease stage III. This medical issue was stable during her hospitalization. Medications were continued as able.
Patient is stable for discharge home at this time. If there are any questions regarding this dictation or her hospital stay, please not hesitate to call. Our office number is [phone].
Total for discharge 32 minutes.
Important imaging findings :
CT SCAN ABDOMEN/PELVIS IMPRESSION:
The patient is status post proctocolectomy, with J-pouch formation. Distal narrowing, most consistent with the patient's known stricture.
No bowel obstruction. No free fluid or free air.
Discharge Plan
-
Patient Disposition: Home (Routine Discharge)
Discharge Diagnosis/Procedures: Crohn's exacerbation, oral candidiasis, chronic kidney disease stage III
Condition: Good
Diet: As tolerated and Regular
Activity: As tolerated
Driving Restrictions: As prior to admission
Bathing Restrictions: None
Referrals:
Allan Nj MD [Family Provider] - in less than 1 week
Prescriptions:
New
clotrimazole 10 mg Laine
10 mg PO 5/D 5 Days Qty: 25 0RF
prednisone 10 mg tablet
40 mg PO DAILY Qty: 100 0RF
Rx Instructions:
take 40mg (4 tabs) daily for 5 days then taper by 5mg ( 1/2 tab) daily every 5 days until off
levofloxacin 500 mg tablet
500 mg PO DAILY Qty: 7 0RF
metronidazole 500 mg tablet
500 mg PO TID Qty: 21 0RF
Held
Stelara 90 mg/mL Syringe
90 mg SC Q8W
Hold Instructions: discuss restarting with your GI doctor
Discharge Orders:
Discharge Patient (As Directed); Ordered 07/31/24
Ordered By: Pippa Knight
Discharge Date and Time
Print Language: GERMAN
[2024-07-31] MEDS: LR IV (14:47)
--- NOTE | 2024-07-31 14:47 | W.PN.GI.CBS2 ---
Today's Communication / Plan
-
switch to PO steroids and PO antibiotics
DC home
Assessment / Plan
-
53 y/o female with hx of ETOH pancreatitis (02/2023), fatty liver, Crohns disease currently followed by currently GI by Dr. Huang Huitron in [place] and Surgically by Dr. Chang with prior hx of small bowel/large bowel diagnosed 24 years ago, was on
Remicade for several years and was switched to Stelara 6 years ago.� In 2017 she apparently had perforation of the distal descending/sigmoid colon and had to have a laparotomy. Since then in 2019 she had had robotic colostomy takedown with loop
ileostomy complicated by abdominal abscesses/pelvic anastomotic leak, Resection of previous ileocolic anastomosis and L colon (02/2020)�revision of ileostomy (03/2020) ex laparotomy [facility], completion proctectomy with ileoanal J-pouch anastomosis and
diverting loop ileostomy, repair of parastomal hernia (03/2021),Resection and closure of ileostomy with ileoanal pouch (06/2021), has hx of secondary openings of fistulas in 02/2023 on Stelara. Currently being followed by Dr. Hays who did a
pouchoscopy 2 weeks ago that showed ulcerations and possible stenosis. She is considering switching her from Stelara to Rinvoq however she ended up at [facility]. She was treated for UTI with antibiotics, also treated with IV
steroids for Crohn's flare, developed oral thrush treated as well. Discharged home. Returns to the ER here for continued diarrhea 8-12 episodes a day. There was blood within it now improving. Asked to evaluate for the same. Currently awaiting
records from her hospitalization. The patient is unsure if she had stool studies performed. She is still having left lower quadrant and lower abdominal tenderness. She presented with a leukocytosis of 23.5 now down to 15.9, hemoglobin 8.8 down
from 10.2, hematocrit 27.9, platelets 172, sodium 140, potassium 3.8, BUN 29, creatinine 1.4, glucose 85, total bilirubin 0.2, AST 55, ALT 92, alk phos 104, albumin 3.2
Impression:
-Crohn's with ileoanal J pouch, status post pouchoscopy approximately 2 weeks ago with ulcerations and stenosis-> currently on Stelara-> follows with Dr. Hays in [place]
--Continues to be symptomatic with 8-12 bowel movements daily. Watery. Improvement less blood seen within bowel movements since hospitalized yesterday
-Recent hospitalization at [facility] status post IV steroids-> awaiting records
-Recent UTI status post antibiotics
-Oral thrush status posttreatment, no signs present
-Anemia
Plan:
Sx related to flare with chronic pouchitis and also has anal stenosis
Continue Levaquin and Flagyl X 7 days
Symptoms have improved on steroids okay to DC home today and switch to p.o. prednisone 40 mg daily and taper by 5 mg every 5 days
She has an appointment next week with her outpatient GI Dr. Hays and plan apparently was to switch her from Stelara to Rinvoq
She will also follow-up with Dr. Chang as outpatient
Discussed with Dr. Knight
Subjective
Subjective
Date of Service: July 31, 2024
Her symptoms have markedly improved she is feeling much better with less abdominal pain no further bleeding or mucus in the stool
Objective
Data Reviewed
Laboratory Data:
Laboratory Results
07/31/24 06:03
07/31/24 06:03
Laboratory Results
Magnesium 2.0 mg/dl (1.6-2.3) 07/31/24 06:03
Total Bilirubin 0.4 mg/dl (0.2-1.3) 07/31/24 06:03
AST 21 U/L (14-36) 07/31/24 06:03
ALT 56 U/L (0-35) H 07/31/24 06:03
Alkaline Phosphatase 93 U/L (38-126) 07/31/24 06:03
Lipase 137 U/L (23-300) 07/29/24 14:05
Vital Signs and I&O:
Vital Signs
Temp Pulse Resp BP Pulse Ox
98.3 F 89 18 138/85 96
07/31/24 08:56 07/31/24 08:56 07/31/24 08:56 07/31/24 08:56 07/31/24 08:56
I&O
07/30/24 07/31/24 08/01/24
06:59 06:59 06:59
Intake Total 960 / 960 1230 / 1230
Balance 960 / 960 1230 / 1230
Physical Exam
Physical Exam
Cardiology: Normal Sinus Rhythm
GI: Soft, Non Distended, Non Tender and Normal Bowel Sounds
[2024-07-31 16:34] VITALS: BP 125/72
[2024-07-31] MEDS: AFLURIA (36 mos+) 2024-2025 FORMULA 0.5 ML IM (18:30)
[2024-07-31] MEDS: HEPARIN 5000 UNITS SC (20:47)
[2024-07-31] MEDS: ANESTHETIC LOZENGE 1 LOZENGE PO (20:56)
[2024-07-31] MEDS: LEVAQUIN 50 IV (22:12)
[2024-07-31 23:01] VITALS: BP 130/78
[2024-08-01] MEDS: MAGIC OR MIRACLE MOUTHWASH 5 ML PO ×3 (02:28→09:28)
[2024-08-01] MEDS: SOLU-MEDROL PF 20 MG IV ×2 (02:28→09:27)
[2024-08-01] MEDS: ZOFRAN 4 MG IV ×2 (02:43→09:27)
[2024-08-01] MEDS: DILAUDID 0.5 MG IV ×2 (02:43→09:27)
[2024-08-01] MEDS: ANESTHETIC LOZENGE 1 LOZENGE PO ×2 (02:44→10:27)
[2024-08-01] MEDS: FLAGYL 500 MG 100 IV (05:05)
[2024-08-01 07:15] VITALS: BP 136/74
--- NOTE | 2024-08-01 08:31 | W.PN.GI.CBS2 ---
Today's Communication / Plan
-
If tolerates diet DC
Assessment / Plan
-
53 y/o female with hx of ETOH pancreatitis (02/2023), fatty liver, Crohns disease currently followed by currently GI by Dr. Huang Huitron in [place] and Surgically by Dr. Chang with prior hx of small bowel/large bowel diagnosed 24 years ago, was on
Remicade for several years and was switched to Stelara 6 years ago.� In 2017 she apparently had perforation of the distal descending/sigmoid colon and had to have a laparotomy. Since then in 2019 she had had robotic colostomy takedown with loop
ileostomy complicated by abdominal abscesses/pelvic anastomotic leak, Resection of previous ileocolic anastomosis and L colon (02/2020)�revision of ileostomy (03/2020) ex laparotomy [facility], completion proctectomy with ileoanal J-pouch anastomosis and
diverting loop ileostomy, repair of parastomal hernia (03/2021),Resection and closure of ileostomy with ileoanal pouch (06/2021), has hx of secondary openings of fistulas in 02/2023 on Stelara. Currently being followed by Dr. Hays who did a
pouchoscopy 2 weeks ago that showed ulcerations and possible stenosis. She is considering switching her from Stelara to Rinvoq however she ended up at [facility]. She was treated for UTI with antibiotics, also treated with IV
steroids for Crohn's flare, developed oral thrush treated as well. Discharged home. Returns to the ER here for continued diarrhea 8-12 episodes a day. There was blood within it now improving. Asked to evaluate for the same. Currently awaiting
records from her hospitalization. The patient is unsure if she had stool studies performed. She is still having left lower quadrant and lower abdominal tenderness. She presented with a leukocytosis of 23.5 now down to 15.9, hemoglobin 8.8 down
from 10.2, hematocrit 27.9, platelets 172, sodium 140, potassium 3.8, BUN 29, creatinine 1.4, glucose 85, total bilirubin 0.2, AST 55, ALT 92, alk phos 104, albumin 3.2
Impression:
-Crohn's with ileoanal J pouch, status post pouchoscopy approximately 2 weeks ago with ulcerations and stenosis-> currently on Stelara-> follows with Dr. Hays in [place]
--Continues to be symptomatic with 8-12 bowel movements daily. Watery. Improvement less blood seen within bowel movements since hospitalized yesterday
-Recent hospitalization at [facility] status post IV steroids-> awaiting records
-Recent UTI status post antibiotics
-Oral thrush status posttreatment, no signs present
-Anemia
Plan:
Sx related to flare with chronic pouchitis and also has anal stenosis
Continue Levaquin and Flagyl X 7 days
Symptoms have improved on steroids okay to DC home today and switch to p.o. prednisone 40 mg daily and taper by 5 mg every 5 days
She has an appointment next week with her outpatient GI Dr. Hays and plan apparently was to switch her from Stelara to Rinvoq
She will also follow-up with Dr. Chang as outpatient
Discussed with Dr. Knight 07/31
Discharge was held yesterday as she felt that a piece of hamburger was stuck after she ate but she says that she was able to bring it up last night and does not feel like it stuck anymore and usually does not have any symptoms of dysphagia told her
to pick soft foods for now and if able to tolerate DC home today
Subjective
Subjective
Date of Service: August 01, 2024
Patient is angry and frustrated that she got a pur�ed diet but I received a call yesterday after she ate dinner and ate a piece of hamburger and felt that it was stuck and she tried another piece and felt that it was still stuck so told to switch
her to a soft diet. She says that she was able to bring it up and does not feel that there is any food stuck anymore and denies any symptoms of dysphagia prior to this and wants to eat
Objective
Data Reviewed
Laboratory Data:
Laboratory Results
07/31/24 06:03
07/31/24 06:03
Laboratory Results
Magnesium 2.0 mg/dl (1.6-2.3) 07/31/24 06:03
Total Bilirubin 0.4 mg/dl (0.2-1.3) 07/31/24 06:03
AST 21 U/L (14-36) 07/31/24 06:03
ALT 56 U/L (0-35) H 07/31/24 06:03
Alkaline Phosphatase 93 U/L (38-126) 07/31/24 06:03
Lipase 137 U/L (23-300) 07/29/24 14:05
Vital Signs and I&O:
Vital Signs
Temp Pulse Resp BP Pulse Ox
97.8 F 70 18 136/74 97
08/01/24 07:15 08/01/24 07:15 08/01/24 07:15 08/01/24 07:15 08/01/24 07:15
I&O
07/31/24 08/01/24 08/02/24
06:59 06:59 06:59
Intake Total 1230 / 1230 2570 / 2570
Balance 1230 / 1230 2570 / 2570
Physical Exam
Physical Exam
Cardiology: Normal Sinus Rhythm
Pulmonary: Clear
GI: Soft, Non Distended and Tender (mild tenderness lower abdomen)
--- NOTE | 2024-08-01 08:50 | PTOTSP ---
Speech Language Pathology
Pt seen for clinical bedside swallow evaluation. Pt endorses continued pain in throat, R>L. She states this is the same pain as when she was diagnosed with thrush, although somewhat improved. Pt reported that piece of steak sandwich resulted in
globus sensation x2 last evening, and she localized this to the level of the sternal notch. She was able to regurgitate this. This date, P.O. trials of regular solids and thin liquids provided. Adequate mastication, bolus formation, and A-P
transit noted with no oral residue. No overt signs of aspiration. Pt denied any globus sensation. Do not suspect oropharyngeal dysphagia.
Recommend:
(1) Regular solids/thin liquids
(2) Esophageal precautions
(3) Meds as tolerated
(4) [employer] to continue to follow
[2024-08-01] MEDS: HEPARIN 5000 UNITS SC (09:26)
[2024-08-01] MEDS: MYCELEX TROCHE 10 MG PO (09:32)
--- NOTE | 2024-08-01 12:07 | W.PN.HOSP.TC ---
Today's Communication/Plan
-
dc
Assessment / Plan
Assessment / Plan
53yo F with PMHx of colecytectomy, Crohns, bowel perforation, bowel obstruction with proctocolectomy came with worsening abdominal pain, managed for Crohns flare. Colonoscopy 2 weeks prior to admission showed inflammation in the pouch. ALso
developed odynophagia with oral thrush 2/2 steroids. Improved and able to tolerate oral intake. Medically stable for d/c as outpatient follow up by her GI already scheduled
A/P:
#Crohns flare
GI followed: FLagyl, Levaquin
Taper steroids
FOllow up with established GI
CT abd without acute findings.
#Oral candidiasis
Nistatyn
Magic mouthwash
#Asymptomatic bacteriuria
no treatment indicated
#CKD stage 3a
Cr stable
#leukocytosis 2/2 steroids
#Chronic anemia 2/2 chronic GI blood loss with Crohns
outpatient f/u
DVT ppx SCDs
Full code
I have spent at least 38min reviewing patient chart, test results, communication with consultants and direct patient care
Anticipated Discharge: Today
Subjective/Interval History
-
Date of Service: August 01, 2024
Objective Data
-
Vital Signs:
Vital Signs
Temp Pulse Resp BP Pulse Ox
97.8 F 70 18 136/74 97
08/01/24 07:15 08/01/24 07:15 08/01/24 07:15 08/01/24 07:15 08/01/24 07:15
I&O
07/31/24 08/01/24 08/02/24
06:59 06:59 06:59
Intake Total 1230 / 1230 2570 / 2570
Balance 1230 / 1230 2570 / 2570
Review of Systems
-
History Source: Patient
All other systems: Reviewed and negative
Physical Exam
-
General: No Apparent Distress
HEENT: Normocephalic
Respiratory: Clear to Auscultation
Cardiac: Regular Rhythm
GI: Soft, Nontender and Nondistended
Skin: Warm
Neuro: Awake, Alert, Oriented and AO x 3
Psych: Calm
--- NOTE | 2024-08-01 12:08 | W.DCSUMMARY ---
Discharge Summary
Discharge Data
Date of Admission: 07/29/24
Date of Discharge: 08/01/24
-
Pending Results: No
Hospital Course
53yo F with PMHx of colecytectomy, Crohns, bowel perforation, bowel obstruction with proctocolectomy came with worsening abdominal pain, managed for Crohns flare. Colonoscopy 2 weeks prior to admission showed inflammation in the pouch. ALso
developed odynophagia with oral thrush 2/2 steroids. Improved and able to tolerate oral intake. Medically stable for d/c as outpatient follow up by her GI already scheduled
I have spent at least 38min reviewing patient chart, test results, communication with consultants and direct patient care
Patient was managed for:
#Crohns flare
#Oral candidiasis
#Asymptomatic bacteriuria
#CKD stage 3a
#leukocytosis 2/2 steroids
#Chronic anemia 2/2 chronic GI blood loss with Crohns
Discharge Plan
-
Patient Disposition: Home (Routine Discharge)
Discharge Diagnosis/Procedures: Crohn's exacerbation, oral candidiasis, chronic kidney disease stage III
Condition: Good
Diet: As tolerated and Regular
Activity: As tolerated
Driving Restrictions: As prior to admission
Bathing Restrictions: None
Referrals:
Humble Chang MD [Active] -
Allan Nj MD [Family Provider] - in less than 1 week
Prescriptions:
New
prednisone 10 mg tablet
40 mg PO DAILY Qty: 100 0RF
Rx Instructions:
take 40mg (4 tabs) daily for 5 days then taper by 5mg ( 1/2 tab) daily every 5 days until off
levofloxacin 500 mg tablet
500 mg PO DAILY Qty: 7 0RF
metronidazole 500 mg tablet
500 mg PO TID Qty: 21 0RF
nystatin 100,000 unit/mL suspension
500,000 unit PO QID Qty: 140 0RF
Held
Stelara 90 mg/mL Syringe
90 mg SC Q8W
Hold Instructions: discuss restarting with your GI doctor
Discharge Orders:
Discharge Patient (As Directed); Ordered 08/01/24
Ordered By: Jam Gipson
Discharge Date and Time
Print Language: [id number]
[2024-08-01] MEDS: MYCELEX TROCHE PO (12:49)
== END 2024-08-01 13:16 | disposition home or self-care (01) | DRG 386 ==
LOC: 3 WEST ACU 20:03
PROVIDERS: Nurse Practitioner; Registered Nurse; ADMITTING PHYSICIAN Internal Medicine; ATTENDING PHYSICIAN Internal Medicine; CONSULT PHYSICIAN Internal Medicine Gastroenterology; EMERGENCY PHYSICIAN Student in an Organized Health Care Education/Training Program; FAMILY PHYSICIAN Family Medicine; OTHER PHYSICIAN Surgery
PROC: 3E02340 Introduction of Influenza Vaccine into Muscle, Percutaneous Approach (ICD-10-PCS; 2024-07-31)
DX: K50.911 Crohn's disease, unspecified, with rectal bleeding (principal); B37.0 Candidal stomatitis; K91.850 Pouchitis; N18.31 Chronic kidney disease, stage 3a; D72.829 Elevated white blood cell count, unspecified; T38.0X5A Adverse effect of glucocorticoids and synthetic analogues, initial encounter; D50.0 Iron deficiency anemia secondary to blood loss (chronic); K76.0 Fatty (change of) liver, not elsewhere classified; K44.9 Diaphragmatic hernia without obstruction or gangrene; K62.4 Stenosis of anus and rectum; F17.200 Nicotine dependence, unspecified, uncomplicated; R82.71 Bacteriuria; Z88.1 Allergy status to other antibiotic agents; Y83.2 Surgical operation with anastomosis, bypass or graft as the cause of abnormal reaction of the patient, or of later complication, without mention of misadventure at the time of the procedure; Z88.5 Allergy status to narcotic agent; Z98.0 Intestinal bypass and anastomosis status; Z90.49 Acquired absence of other specified parts of digestive tract; Z23 Encounter for immunization
CPT/HCPCS: 80048; 80053; 81003; 81015; 83690; 83735; 85025; 85027; 86140; 86850; 86900; 86901; 92610; 96361; 96374; 96375; 99284